=== PATIENT | male | born 1935 | race Caucasian/White ===

== ENCOUNTER 2018-11-17 06:21 | Inpatient (IN) ==
[2018-11-13 15:35] LABS: Basophils % 0.3 % (0.0-0.8); Eosinophils # 0.1 10*3/uL (0.0-0.87); Eosinophils % 1.3 % (0.00-10.9); Hematocrit 46.2 VOL% (42.0-52.0); Hemoglobin 14.4 GM/DL (14.0-18.0); Immature Granulocytes % 0.3 %; Immature Granulocytes Absolute 0.03 #; Lymphocytes # 1.6 10*3/uL (1.4-4.0); Lymphocytes % 17.5 % (21.2-54.2); Mean Corpuscular HGB Conc 31.2 GM/DL (32-36); Mean Corpuscular Volume 86.4 FL (87-102); Mean Platelet Volume 9.4 FL (9.6-12.0); Monocytes % 5.3 % (1.7-12.7); Neutrophils % 75.3 % (38.7-73.9); Platelet Count 223 T/CUMM (130-400); Red Blood Count 5.35 MC/CUMM (3.8-5.5); Red Cell Distribution Width 15.3 % (9.3-17.3); White Blood Count 9.4 T/CUMM (4-12)
[2018-11-13 15:54] LABS: Albumin 3.5 G/DL (3.4-5.0); Bilirubin,Total 0.4 MG/DL (0.2-1.0); Calcium 8.5 MG/DL (8.5-10.1); Osmolality,Calculated 291.1 MOS/KG (273-304); Total Protein 6.8 G/DL (6.4-8.3)
[2018-11-17] MEDS ORDERED: VANCOMYCIN INJ 500 MG in SODIUM CHLORIDE 0.9% 100 ML IV ONE (06:30)
[2018-11-17] MEDS ORDERED: VANCOMYCIN 500 MG VIAL ONE (07:31)
[2018-11-17] MEDS ORDERED: LIDOCAINE 1% 20 ML VIAL ONE (08:02)
[2018-11-17] MEDS ORDERED: HEPARIN 5,000 UNIT/1 ML VIAL ONE (08:02)
[2018-11-17] MEDS ORDERED: LACTATED RINGERS 1,000 ML IV SCH (10:00)
[2018-11-17] MEDS ORDERED: ONDANSETRON 4 MG/2 ML VIAL IV PRN (11:09)
[2018-11-17] MEDS ORDERED: HYDROmorphone 2 MG/1 ML VIAL IV PRN ×2 (11:09)
[2018-11-17] MEDS ORDERED: NALOXONE 0.4 MG/ML VIAL IV PRN (11:09)
[2018-11-17] MEDS ORDERED: oxyCODONE/ACETAMINOPHEN 5-325 MG TABLET PO PRN ×2 (11:09)
[2018-11-17] MEDS ORDERED: PROMETHAZINE 25 MG/1 ML VIAL IM PRN (11:09)
[2018-11-17] MEDS ORDERED: DEXTROSE 50% 25 GM/50 ML VIAL IV PRN (11:09)
[2018-11-17] MEDS ORDERED: GLUCAGON 1 MG VIAL IM PRN (11:09)
[2018-11-17] MEDS ORDERED: NITROGLYCERIN SL 0.4 MG TABLET SL PRN (11:12)
[2018-11-17] MEDS ORDERED: NITROPRUSSIDE 100 MG in DEXTROSE 5% 250 ML IV SCH (11:30)
[2018-11-17] MEDS ORDERED: PROPOFOL 200 MG/20 ML VIAL IV ONE (11:36)
[2018-11-17] MEDS ORDERED: HEPARIN 10,000 UNIT/10 ML VIAL ONE (11:36)
[2018-11-17] MEDS ORDERED: SEVOFLURANE 1 UNIT/15 MINUTE INH ONE (11:36)
[2018-11-17] MEDS ORDERED: ETOMIDATE 40 MG/20 ML VIAL IV ONE (11:37)
[2018-11-17] MEDS ORDERED: GLYCOPYRROLATE 0.4 MG/2 ML VIAL ONE (11:37)
[2018-11-17] MEDS ORDERED: MIDAZOLAM 2 MG/2 ML VIAL ONE (11:37)
[2018-11-17] MEDS ORDERED: fentaNYL 100 MCG/2 ML VIAL ONE (11:37)
[2018-11-17] MEDS ORDERED: ePHEDrine 50 MG/ML AMP ONE (11:37)
[2018-11-17] MEDS ORDERED: ONDANSETRON 4 MG/2 ML VIAL ONE (11:37)
[2018-11-17] MEDS ORDERED: PHENYLEPHRINE 10 MG/1 ML VIAL IV ONE (11:37)
[2018-11-17] MEDS ORDERED: NITROGLYCERIN DRIP 50 MG/250 ML BOTTLE IV ONE (11:38)
[2018-11-17] MEDS ORDERED: PHENYLEPHRINE 1 MG/10 ML SYRINGE IV ONE (11:38)
[2018-11-17] MEDS ORDERED: ROCURONIUM 100 MG/10 ML VIAL IV ONE (11:38)
[2018-11-17] MEDS ORDERED: SODIUM CHLORIDE 0.9% 500 ML IV ONE (11:39)
[2018-11-17] MEDS ORDERED: LACTATED RINGERS 2,000 ML IV ONE (11:39)
[2018-11-17] MEDS ORDERED: SODIUM CHLORIDE 0.9% 200 ML IV ONE (11:39)
[2018-11-17] MEDS ORDERED: NEOSTIGMINE 10 MG/10 ML VIAL ONE (11:39)
[2018-11-17] MEDS: INSULIN REGULAR 100 UNIT/ML SUBCUT SCH ×2 (14:44→21:34)
[2018-11-17] MEDS: LACTATED RINGERS 1,000 ML IV SCH (14:45)
[2018-11-17] MEDS: PHENYLEPHRINE DRIP 40 MG/250 ML PREMIX IV SCH ×2 (14:47→15:00)
[2018-11-17] MEDS: MAGNESIUM OXIDE 400 MG TABLET PO SCH ×2 (16:43→22:12)
[2018-11-17] MEDS: FAMOTIDINE 20 MG TABLET PO SCH (22:12)
[2018-11-17 22:25] LABS: Apearance,Urine CLEAR (Clear); Bacteria,Urine Occasional /HPF (Few); Bilirubin,Urine Negative (Negative); Blood, Urine Small mg/dL (Negative); Glucose,Urine (UA) >=500 mg/dL (Negative); Ketones,Urine Negative (Negative); Mucus,Urine Occasional /LPF (Occasional); Nitrite,Urine Negative (Negative); Protein,Urine Negative; RBC,Urine 9 /HPF (0-4); Urine Color Yellow (Yellow); Urine Specific Gravity 1.024 (1.001-1.035); Urine Urobilinogen < 2.0 EU/DL (0.2-1.0); WBC,Urine 1 /HPF (0-6)
[2018-11-18] MEDS: INSULIN REGULAR 100 UNIT/ML SUBCUT SCH ×3 (00:18→11:53)
[2018-11-18] MEDS: LACTATED RINGERS 1,000 ML IV SCH (01:06)
[2018-11-18] MEDS ORDERED: LEVOTHYROXINE 25 MCG TABLET PO SCH (06:30)
[2018-11-18] MEDS ORDERED: AMIODARONE 200 MG TABLET PO SCH ×2 (09:00)
[2018-11-18] MEDS ORDERED: CLOPIDOGREL 75 MG TABLET PO SCH ×2 (09:00)
[2018-11-18] MEDS ORDERED: TAMSULOSIN 0.4 MG CAPSULE PO SCH (09:00)
[2018-11-18] MEDS ORDERED: sitaGLIPtin 25 MG TABLET PO SCH (09:00)
[2018-11-18] MEDS ORDERED: ASPIRIN EC 81 MG TABLET PO SCH ×2 (09:00)
[2018-11-18] MEDS: MAGNESIUM OXIDE 400 MG TABLET PO SCH (09:18)
[2018-11-18] MEDS: FAMOTIDINE 20 MG TABLET PO SCH (09:18)
[2018-11-18] MEDS ORDERED: EMPAGLIFLOZIN METFORMIN PO SCH (09:29)
[2018-11-18] MEDS ORDERED: INSULIN GLARGINE 100 UNIT/ML SUBCUT SCH (10:00)
[2018-11-18] MEDS ORDERED: SIMETHICONE CHEW 125 MG TABLET PO PRN (10:14)
[2018-11-18 15:46] VITALS: BP 129/77
== END 2018-11-18 17:10 | disposition home or self-care (01) | DRG 39 ==
LOC: N.SDSINP 06:21 → N.CC 12:39 → N.4E 11-18 10:36
PROVIDERS: ADMIT Surgery; ATTEND Surgery

== ENCOUNTER 2020-01-25 14:19 | Inpatient (IN) ==
[2020-01-25 15:01] LABS: Basophils % 0.4 % (0.0-0.8); Eosinophils # 0.1 10*3/uL (0.0-0.87); Hematocrit 50.1 VOL% (42.0-52.0); Hemoglobin 16.1 GM/DL (14.0-18.0); Immature Granulocytes % 0.4 %; Immature Granulocytes Absolute 0.03 #; Lymphocytes # 1.9 10*3/uL (1.4-4.0); Lymphocytes % 23.5 % (21.2-54.2); Mean Corpuscular HGB Conc 32.1 GM/DL (32-36); Mean Corpuscular Volume 85.1 FL (87-102); Mean Platelet Volume 9.8 FL (9.6-12.0); Monocytes % 6.7 % (1.7-12.7); Platelet Count 192 T/CUMM (130-400); Red Blood Count 5.89 MC/CUMM (3.8-5.5); Red Cell Distribution Width 14.6 % (9.3-17.3); White Blood Count 8.2 T/CUMM (4-12)
[2020-01-25 15:19] LABS: Alanine Aminotransferase 28 U/L (16-61); Albumin 3.3 G/DL (3.4-5.0); Alkaline Phosphatase 71 U/L (45-117); Aspartate Amino Transferase 17 U/L (0-37); Bilirubin,Total < 0.39 MG/DL (0.2-1.0); Blood Urea Nitrogen 27 MG/DL (7-18); Calcium 9.1 MG/DL (8.5-10.1); Estimated Glom Filtration Rate 47 ML/MIN; Glucose 241 MG/DL (74-106); Osmolality,Calculated 287.7 MOS/KG (273-304); Total Protein 6.7 G/DL (6.4-8.3)
[2020-01-25 15:29] LABS: PT Patient Result 10.4 SECS (9.8-11.9)
[2020-01-25] MEDS ORDERED: HEPARIN 1,000 UNIT/1 ML VIAL IV STA (15:33)
[2020-01-25] MEDS ORDERED: ONDANSETRON 4 MG/2 ML VIAL IV PRN (15:36)
[2020-01-25] MEDS ORDERED: ACETAMINOPHEN 325 MG TABLET PO PRN (15:36)
[2020-01-25] MEDS ORDERED: HEPARIN DRIP 25,000 UNITS/500 ML PREMIX IV SCH (16:00)
[2020-01-25] MEDS ORDERED: LACTATED RINGERS 1,000 ML IV SCH (16:00)
[2020-01-25] MEDS ORDERED: NITROGLYCERIN SL 0.4 MG TABLET SL PRN (16:32)
[2020-01-25] MEDS ORDERED: GLUCAGON 1 MG VIAL IM PRN (16:38)
[2020-01-25] MEDS ORDERED: DEXTROSE 50% 25 GM/50 ML VIAL IV PRN (16:38)
[2020-01-25 16:55] LABS: Apearance,Urine CLEAR (Clear); Bilirubin,Urine Negative (Negative); Blood, Urine Negative (Negative); Glucose,Urine (UA) >=500 mg/dL (Negative); Hyaline Casts,Urine 3 /LPF (0-3); Ketones,Urine Negative (Negative); Mucus,Urine Occasional /LPF (Occasional); Nitrite,Urine Negative (Negative); Protein,Urine Negative; RBC,Urine 1 /HPF (0-4); Urine Color Yellow (Yellow); Urine Specific Gravity 1.031 (1.001-1.035); Urine Urobilinogen < 2.0 EU/DL (0.2-1.0); WBC,Urine 1 /HPF (0-6)
[2020-01-25 17:05] LABS: Barbiturates Screen,Urine Negative (Negative); Benzodiazepines Screen,Urine Negative (Negative); Cannabinoid Screen,Urine Negative (Negative); Opiate Screen,Urine Negative (Negative); Phencyclidine Screen,Urine Negative (Negative)
[2020-01-25] MEDS: MIDODRINE 2.5 MG TABLET PO SCH (20:38)
[2020-01-25] MEDS: FAMOTIDINE 20 MG TABLET PO SCH (20:38)
[2020-01-25] MEDS: GABAPENTIN 100 MG CAPSULE PO SCH (20:39)
[2020-01-25] MEDS: AMIODARONE 200 MG TABLET PO SCH (20:39)
[2020-01-26 00:53] LABS: Basophils % 0.4 % (0.0-0.8); Eosinophils # 0.2 10*3/uL (0.0-0.87); Eosinophils % 2.9 % (0.00-10.9); Hematocrit 49.1 VOL% (42.0-52.0); Hemoglobin 15.5 GM/DL (14.0-18.0); Immature Granulocytes % 0.4 %; Immature Granulocytes Absolute 0.03 #; Lymphocytes # 2.7 10*3/uL (1.4-4.0); Mean Corpuscular HGB Conc 31.6 GM/DL (32-36); Mean Corpuscular Volume 86.6 FL (87-102); Mean Platelet Volume 9.8 FL (9.6-12.0); Monocytes % 7.2 % (1.7-12.7); Neutrophils % 50.1 % (38.7-73.9); Platelet Count 156 T/CUMM (130-400); Red Blood Count 5.67 MC/CUMM (3.8-5.5)
[2020-01-26 01:05] LABS: PT Patient Result 10.8 SECS (9.8-11.9); Partial Thromboplastin Time 42.3 SECS (23.9-33.8)
[2020-01-26 01:15] LABS: Calcium 8.6 MG/DL (8.5-10.1); Osmolality,Calculated 287.4 MOS/KG (273-304)
[2020-01-26] MEDS: LEVOTHYROXINE 25 MCG TABLET PO SCH (06:21)
[2020-01-26] MEDS ORDERED: VANCOMYCIN INJ 1,000 MG in SODIUM CHLORIDE 0.9% 250 ML IV ONE (09:00)
[2020-01-26] MEDS ORDERED: DEXMEDETOMIDINE 200 MCG/2 ML VIAL ONE (11:35)
[2020-01-26] MEDS ORDERED: BUPIVACAINE MPF 0.5% /EPI 30 ML VIAL ONE (11:35)
[2020-01-26] MEDS ORDERED: HEPARIN 5,000 UNIT/1 ML VIAL ONE (12:59)
[2020-01-26] MEDS ORDERED: LIDOCAINE 1% 20 ML VIAL ONE (12:59)
[2020-01-26] MEDS ORDERED: GLUCAGON 1 MG VIAL IM PRN (14:16)
[2020-01-26] MEDS ORDERED: NALOXONE 0.4 MG/ML VIAL IV PRN (14:16)
[2020-01-26] MEDS ORDERED: PROMETHAZINE 25 MG/1 ML VIAL IM PRN (14:16)
[2020-01-26] MEDS ORDERED: oxyCODONE/ACETAMINOPHEN 5-325 MG TABLET PO PRN ×2 (14:16)
[2020-01-26] MEDS ORDERED: DEXTROSE 50% 25 GM/50 ML VIAL IV PRN (14:16)
[2020-01-26] MEDS ORDERED: ONDANSETRON 4 MG/2 ML VIAL IV PRN (14:16)
[2020-01-26] MEDS ORDERED: HYDROmorphone 2 MG/1 ML VIAL IV PRN (14:16)
[2020-01-26] MEDS ORDERED: PHENYLEPHRINE DRIP 40 MG/250 ML PREMIX IV SCH (14:30)
[2020-01-26] MEDS ORDERED: DESFLURANE 1 UNIT/15 MINUTE INH ONE (14:52)
[2020-01-26] MEDS ORDERED: ONDANSETRON 4 MG/2 ML VIAL ONE (14:52)
[2020-01-26] MEDS ORDERED: fentaNYL 100 MCG/2 ML VIAL ONE (14:52)
[2020-01-26] MEDS ORDERED: HEPARIN 10,000 UNIT/10 ML VIAL ONE (14:52)
[2020-01-26] MEDS ORDERED: PHENYLEPHRINE DRIP 20 MG/250 ML PREMIX IV ONE (14:52)
[2020-01-26] MEDS ORDERED: LIDOCAINE 2% 5 ML VIAL ONE (14:52)
[2020-01-26] MEDS ORDERED: SODIUM CHLORIDE 0.9% 1,000 ML IV ONE (14:53)
[2020-01-26] MEDS ORDERED: ROCURONIUM 100 MG/10 ML VIAL IV ONE (14:53)
[2020-01-26] MEDS ORDERED: PROTAMINE SULFATE 50 MG/5 ML VIAL IV ONE (14:53)
[2020-01-26] MEDS ORDERED: LACTATED RINGERS 1,000 ML IV ONE (14:53)
[2020-01-26] MEDS ORDERED: NITROGLYCERIN DRIP 50 MG/250 ML BOTTLE IV ONE (14:53)
[2020-01-26] MEDS ORDERED: NEOSTIGMINE 10 MG/10 ML VIAL ONE (14:53)
[2020-01-26] MEDS ORDERED: ETOMIDATE 40 MG/20 ML VIAL IV ONE (14:53)
[2020-01-26] MEDS ORDERED: GLYCOPYRROLATE 0.4 MG/2 ML VIAL ONE (14:53)
[2020-01-26] MEDS: LACTATED RINGERS 1,000 ML IV SCH (15:40)
[2020-01-26] MEDS: TAMSULOSIN 0.4 MG CAPSULE PO SCH (17:08)
[2020-01-26] MEDS: AMIODARONE 200 MG TABLET PO SCH ×2 (17:08→20:16)
[2020-01-26] MEDS: ASPIRIN EC 81 MG TABLET PO SCH (17:08)
[2020-01-26] MEDS: INSULIN GLARGINE 100 UNIT/ML SUBCUT SCH (17:08)
[2020-01-26] MEDS: MIDODRINE 2.5 MG TABLET PO SCH ×2 (17:08→20:16)
[2020-01-26] MEDS: GABAPENTIN 100 MG CAPSULE PO SCH ×2 (17:08→20:16)
[2020-01-26] MEDS: EMPAGLIFLOZIN METFORMIN PO SCH (17:08)
[2020-01-26] MEDS: VITAMIN E 400 UNIT CAPSULE PO SCH (17:09)
[2020-01-26] MEDS: PANTOPRAZOLE 40 MG TABLET PO SCH (17:09)
[2020-01-26] MEDS: NITROPRUSSIDE 100 MG in DEXTROSE 5% 250 ML IV SCH (17:09)
[2020-01-26] MEDS: INSULIN REGULAR 100 UNIT/ML SUBCUT SCH ×2 (18:47→23:39)
[2020-01-26] MEDS: HYDROmorphone 2 MG/1 ML VIAL IV PRN (20:13)
[2020-01-26] MEDS: FAMOTIDINE 20 MG TABLET PO SCH (20:16)
[2020-01-27] MEDS: HYDROmorphone 2 MG/1 ML VIAL IV PRN ×2 (01:10→04:56)
[2020-01-27] MEDS: LACTATED RINGERS 1,000 ML IV SCH (01:20)
[2020-01-27] MEDS ORDERED: NITROPRUSSIDE 50 MG/2 ML VIAL ONE (02:38)
[2020-01-27] MEDS: NITROPRUSSIDE 100 MG in DEXTROSE 5% 250 ML IV SCH (02:47)
[2020-01-27] MEDS: LEVOTHYROXINE 25 MCG TABLET PO SCH (06:21)
[2020-01-27] MEDS: INSULIN REGULAR 100 UNIT/ML SUBCUT SCH ×2 (06:21→12:02)
[2020-01-27] MEDS: INSULIN GLARGINE 100 UNIT/ML SUBCUT SCH (08:21)
[2020-01-27] MEDS: TAMSULOSIN 0.4 MG CAPSULE PO SCH (08:22)
[2020-01-27] MEDS: PANTOPRAZOLE 40 MG TABLET PO SCH (08:22)
[2020-01-27] MEDS: VITAMIN E 400 UNIT CAPSULE PO SCH (08:22)
[2020-01-27] MEDS: GABAPENTIN 100 MG CAPSULE PO SCH (08:22)
[2020-01-27] MEDS: ASPIRIN EC 81 MG TABLET PO SCH (08:22)
[2020-01-27] MEDS: AMIODARONE 200 MG TABLET PO SCH (08:22)
[2020-01-27] MEDS: EMPAGLIFLOZIN METFORMIN PO SCH (08:24)
[2020-01-27] MEDS: MIDODRINE 2.5 MG TABLET PO SCH (08:38)
[2020-01-27] MEDS ORDERED: APIXABAN 5 MG TABLET PO SCH (09:00)
[2020-01-27] MEDS ORDERED: sitaGLIPtin 100 MG TABLET PO SCH (09:00)
[2020-01-27] MEDS ORDERED: carvediloL 3.125 MG TABLET PO SCH (11:00)
[2020-01-27 16:19] VITALS: BP 137/74
== END 2020-01-27 17:03 | disposition home or self-care (01) | DRG 38 ==
LOC: EDBD → EDUNIT# → N.ED 14:19 → N.EDINP 15:36 → N.TELEN 17:33 → N.ICU 01-26 12:30 → N.4E 01-27 15:34
PROVIDERS: ADMIT Surgery; ATTEND Surgery

== ENCOUNTER 2021-10-26 22:54 | Inpatient (IN) ==
[2021-10-26] MEDS ORDERED: fentaNYL 100 MCG/2 ML VIAL IV STA (23:22)
[2021-10-26 23:50] LABS: INR 0.9; PT Patient Result 10.5 SECS (10.5-12.0); Partial Thromboplastin Time 28.5 SECS (23.8-32.1)
[2021-10-27 00:04] LABS: Albumin 3.2 G/DL (3.4-5.0); Bilirubin,Total 0.6 MG/DL (0.20-1.00); Calcium 9.4 MG/DL (8.5-10.1); Osmolality,Calculated 296.5 MOS/KG (273-304); Potassium 4.8 MMOL/L (3.5-5.1); Total Protein 6.9 G/DL (6.4-8.2)
[2021-10-27 00:14] LABS: Basophils % 0.2 % (0.0-0.8); Eosinophils # 0.1 10*3/uL (0.0-0.87); Eosinophils % 0.8 % (0.00-10.9); Hematocrit 47.6 VOL% (42.0-52.0); Hemoglobin 15.1 GM/DL (14.0-18.0); Immature Granulocytes % 1.3 %; Immature Granulocytes Absolute 0.08 #; Lymphocytes # 1.5 10*3/uL (1.4-4.0); Lymphocytes % 23.3 % (21.2-54.2); Mean Corpuscular HGB Conc 31.7 GM/DL (32-36); Mean Corpuscular Volume 85.5 FL (87-102); Mean Platelet Volume 9.9 FL (9.6-12.0); Monocytes # 0.5 10*3/uL (0.11-0.8); Monocytes % 7.9 % (1.7-12.7); Neutrophils % 66.5 % (38.7-73.9); Platelet Count 195 T/CUMM (130-400); Red Blood Count 5.57 MC/CUMM (3.8-5.5); Red Cell Distribution Width 15.3 % (9.3-17.3); White Blood Count 6.4 T/CUMM (4-12)
[2021-10-27] MEDS ORDERED: hydrALAZINE 20 MG/1 ML VIAL IV STA (00:33)
[2021-10-27] MEDS ORDERED: GLUCAGON 1 MG VIAL IM PRN (00:34)
[2021-10-27] MEDS ORDERED: fentaNYL 100 MCG/2 ML VIAL IV PRN (00:45)
[2021-10-27] MEDS ORDERED: DEXTROSE 10% 250 ML BAG IV PRN (00:47)
[2021-10-27] MEDS ORDERED: fentaNYL 100 MCG/2 ML VIAL IV STA (01:44)
[2021-10-27] MEDS: HYDROmorphone 1 MG/1 ML SYRINGE IV PRN ×2 (03:49→08:15)
[2021-10-27 05:35] LABS: Basophils % 0.1 % (0.0-0.8); Eosinophils % 0.1 % (0.00-10.9); Hematocrit 47.8 VOL% (42.0-52.0); Hemoglobin 15.1 GM/DL (14.0-18.0); Immature Granulocytes % 0.5 %; Immature Granulocytes Absolute 0.05 #; Lymphocytes # 0.9 10*3/uL (1.4-4.0); Lymphocytes % 8.2 % (21.2-54.2); Mean Corpuscular HGB Conc 31.6 GM/DL (32-36); Mean Corpuscular Volume 84.6 FL (87-102); Mean Platelet Volume 9.7 FL (9.6-12.0); Monocytes # 0.7 10*3/uL (0.11-0.8); Monocytes % 6.2 % (1.7-12.7); Neutrophils % 84.9 % (38.7-73.9); Platelet Count 209 T/CUMM (130-400); Red Blood Count 5.65 MC/CUMM (3.8-5.5); Red Cell Distribution Width 15.5 % (9.3-17.3); White Blood Count 10.8 T/CUMM (4-12)
[2021-10-27 06:05] LABS: Albumin 3.2 G/DL (3.4-5.0); Bilirubin,Total 0.7 MG/DL (0.20-1.00); Calcium 8.9 MG/DL (8.5-10.1); Osmolality,Calculated 296.3 MOS/KG (273-304); Potassium 4.6 MMOL/L (3.5-5.1)
[2021-10-27] MEDS ORDERED: ceFAZolin 2,000 MG/50 ML DUPLEX IV ONE (07:08)
[2021-10-27] MEDS ORDERED: VANCOMYCIN INJ 1,000 MG in SODIUM CHLORIDE 0.9% 250 ML IV ONE (07:08)
[2021-10-27] MEDS ORDERED: ACETAMINOPHEN 500 MG TABLET PO ONE (08:09)
[2021-10-27] MEDS ORDERED: GABAPENTIN 400 MG CAPSULE PO ONE (08:09)
[2021-10-27] MEDS: INSULIN REGULAR 100 UNIT/ML SUBCUT SCH ×4 (09:15→21:22)
[2021-10-27] MEDS: PANTOPRAZOLE 40 MG TABLET PO SCH (09:23)
[2021-10-27] MEDS ORDERED: BACITRACIN OINT 0.9 GM PACK TOP ONE (09:34)
[2021-10-27] MEDS ORDERED: KETAMINE 500 MG/10 ML VIAL ONE (10:41)
[2021-10-27] MEDS ORDERED: DEXMEDETOMIDINE 200 MCG/2 ML VIAL ONE (10:41)
[2021-10-27] MEDS ORDERED: BUPIVACAINE 0.5% 50 ML VIAL ONE (10:42)
[2021-10-27] MEDS ORDERED: ALBUTEROL/IPRATROPIUM 3 ML NEB RESP TX ONE (10:54)
[2021-10-27] MEDS ORDERED: NITROGLYCERIN 2% OINT 1 INCH/GM PACK TOP ONE (11:10)
[2021-10-27] MEDS ORDERED: METOCLOPRAMIDE 10 MG/2 ML VIAL ONE (11:10)
[2021-10-27] MEDS ORDERED: FAMOTIDINE 20 MG/2 ML VIAL IV ONE (11:11)
[2021-10-27] MEDS ORDERED: propofoL 200 MG/20 ML VIAL IV ONE (11:22)
[2021-10-27] MEDS ORDERED: LACTATED RINGERS 1,000 ML IV ONE (12:19)
[2021-10-27] MEDS ORDERED: TRANEXAMIC ACID 1,000 MG/10 ML VIAL ONE (12:21)
[2021-10-27] MEDS ORDERED: GLYCOPYRROLATE 0.4 MG/2 ML VIAL ONE (12:40)
[2021-10-27] MEDS ORDERED: NEOSTIGMINE 10 MG/10 ML VIAL ONE (12:40)
[2021-10-27] MEDS ORDERED: SEVOFLURANE 1 UNIT/15 MINUTE INH ONE (12:43)
[2021-10-27] MEDS ORDERED: MAGNESIUM HYDROXIDE SUSP 30 ML UDCUP PO PRN (13:05)
[2021-10-27] MEDS ORDERED: MORPHINE 2 MG/1 ML SYRINGE IV PRN ×2 (13:06)
[2021-10-27] MEDS ORDERED: NITROGLYCERIN SL 0.4 MG TABLET SL PRN (13:08)
[2021-10-27 13:20] LABS: Bilirubin,Urine Negative (Negative); Blood, Urine Negative (Negative); Glucose,Urine (UA) 500 mg/dL (Negative); Ketones,Urine Negative (Negative); Nitrite,Urine Negative (Negative); Protein,Urine Negative (Negative); Urine Appearance Clear (Clear); Urine Color Yellow (Yellow); Urine Urobilinogen 0.2 eU/dL (<2.0); Urine pH 5.5 (4.5-8.0)
[2021-10-27 13:24] LABS: RBC,Urine 1 /HPF (0-4)
[2021-10-27] MEDS: LACTATED RINGERS 1,000 ML IV SCH ×3 (14:00→23:00)
[2021-10-27] MEDS: ceFAZolin 2,000 MG/50 ML DUPLEX IV SCH (18:40)
[2021-10-27] MEDS ORDERED: AMIODARONE 200 MG TABLET PO ONE (20:41)
[2021-10-27] MEDS ORDERED: DOXEPIN 10 MG PO SCH (21:00)
[2021-10-27] MEDS: TAMSULOSIN 0.4 MG CAPSULE PO SCH (21:18)
[2021-10-27] MEDS: MAGNESIUM OXIDE 400 MG TABLET PO SCH (21:19)
[2021-10-27] MEDS: GABAPENTIN 100 MG CAPSULE PO SCH (21:19)
[2021-10-27] MEDS: DOCUSATE SODIUM 100 MG CAPSULE PO SCH (21:19)
[2021-10-27] MEDS: CYCLOSPORINE 25 MG PO SCH (21:20)
[2021-10-27] MEDS: INSULIN GLARGINE 100 UNIT/ML SUBCUT SCH (21:22)
[2021-10-28] MEDS: ceFAZolin 2,000 MG/50 ML DUPLEX IV SCH (02:02)
[2021-10-28] MEDS ORDERED: LACTATED RINGERS 500 ML IV ONE (03:25)
[2021-10-28] MEDS: ONDANSETRON 4 MG/2 ML VIAL IV PRN ×2 (04:26→11:21)
[2021-10-28 04:35] LABS: Calcium 8.4 MG/DL (8.5-10.1); Osmolality,Calculated 293.1 MOS/KG (273-304); Potassium 4.6 MMOL/L (3.5-5.1)
[2021-10-28 04:50] LABS: Basophils % 0.3 % (0.0-0.8); Eosinophils # 0.1 10*3/uL (0.0-0.87); Eosinophils % 0.7 % (0.00-10.9); Immature Granulocytes % 0.6 %; Immature Granulocytes Absolute 0.06 #; Lymphocytes # 0.8 10*3/uL (1.4-4.0); Lymphocytes % 8.7 % (21.2-54.2); Mean Corpuscular HGB Conc 30.2 GM/DL (32-36); Mean Corpuscular Volume 87.9 FL (87-102); Mean Platelet Volume 10.4 FL (9.6-12.0); Monocytes # 0.8 10*3/uL (0.11-0.8); Neutrophils % 81.7 % (38.7-73.9); Platelet Count 146 T/CUMM (130-400); Red Blood Count 5.04 MC/CUMM (3.8-5.5); Red Cell Distribution Width 15.6 % (9.3-17.3); White Blood Count 9.3 T/CUMM (4-12)
[2021-10-28 04:51] LABS: Hematocrit 44.3 VOL% (42.0-52.0); Hemoglobin 13.4 GM/DL (14.0-18.0)
[2021-10-28] MEDS: LEVOTHYROXINE 50 MCG TABLET PO SCH (06:16)
[2021-10-28] MEDS: LACTATED RINGERS 1,000 ML IV SCH ×2 (08:00→16:13)
[2021-10-28] MEDS: INSULIN GLARGINE 100 UNIT/ML SUBCUT SCH ×2 (08:36→21:36)
[2021-10-28] MEDS: FEXOFENADINE 180 MG TABLET PO SCH (08:37)
[2021-10-28] MEDS: ASPIRIN EC 81 MG TABLET PO SCH (08:37)
[2021-10-28] MEDS: CHOLECALCIFEROL 1,000 UNIT TABLET PO SCH (08:37)
[2021-10-28] MEDS: GABAPENTIN 100 MG CAPSULE PO SCH ×2 (08:37→21:37)
[2021-10-28] MEDS: CYCLOSPORINE 25 MG PO SCH ×3 (08:39→21:37)
[2021-10-28] MEDS: DOCUSATE SODIUM 100 MG CAPSULE PO SCH ×2 (08:40→21:37)
[2021-10-28] MEDS: INSULIN REGULAR 100 UNIT/ML SUBCUT SCH ×5 (08:40→21:36)
[2021-10-28] MEDS: MAGNESIUM OXIDE 400 MG TABLET PO SCH ×2 (08:40→21:37)
[2021-10-28] MEDS: TAMSULOSIN 0.4 MG CAPSULE PO SCH ×2 (08:41→21:37)
[2021-10-28] MEDS: PANTOPRAZOLE 40 MG TABLET PO SCH (08:41)
[2021-10-28] MEDS: CYANOCOBALAMIN 500 MCG TABLET PO SCH (08:42)
[2021-10-28] MEDS ORDERED: sitaGLIPtin 100 MG TABLET PO SCH (09:00)
[2021-10-28] MEDS ORDERED: DAPAGLIFLOZIN 10 MG TABLET PO SCH (09:00)
[2021-10-28] MEDS: AMIODARONE 200 MG TABLET PO SCH (09:21)
[2021-10-28] MEDS ORDERED: ENOXAPARIN 40 MG/0.4 ML SYRINGE SUBCUT SCH (12:00)
[2021-10-29] MEDS: hydrALAZINE 20 MG/1 ML VIAL IV PRN ×2 (04:34→10:23)
[2021-10-29] MEDS: LACTATED RINGERS 1,000 ML IV SCH (04:38)
[2021-10-29 05:18] LABS: Basophils % 0.1 % (0.0-0.8); Eosinophils % 0.2 % (0.00-10.9); Hematocrit 44.4 VOL% (42.0-52.0); Hemoglobin 13.5 GM/DL (14.0-18.0); Immature Granulocytes % 0.5 %; Immature Granulocytes Absolute 0.06 #; Lymphocytes % 8.5 % (21.2-54.2); Mean Corpuscular HGB Conc 30.4 GM/DL (32-36); Mean Corpuscular Volume 87.4 FL (87-102); Mean Platelet Volume 10.1 FL (9.6-12.0); Monocytes # 1.1 10*3/uL (0.11-0.8); Monocytes % 9.1 % (1.7-12.7); Neutrophils % 81.6 % (38.7-73.9); Platelet Count 178 T/CUMM (130-400); Red Blood Count 5.08 MC/CUMM (3.8-5.5); Red Cell Distribution Width 15.4 % (9.3-17.3); White Blood Count 11.8 T/CUMM (4-12)
[2021-10-29 05:36] LABS: Risk Ratio 2.82
[2021-10-29] MEDS: LEVOTHYROXINE 50 MCG TABLET PO SCH (05:43)
[2021-10-29] MEDS: MAGNESIUM OXIDE 400 MG TABLET PO SCH ×2 (08:30→20:51)
[2021-10-29] MEDS: CHOLECALCIFEROL 1,000 UNIT TABLET PO SCH (08:30)
[2021-10-29] MEDS: GABAPENTIN 100 MG CAPSULE PO SCH ×2 (08:30→20:51)
[2021-10-29] MEDS: CYANOCOBALAMIN 500 MCG TABLET PO SCH (08:30)
[2021-10-29] MEDS: FEXOFENADINE 180 MG TABLET PO SCH (08:31)
[2021-10-29] MEDS: INSULIN GLARGINE 100 UNIT/ML SUBCUT SCH ×2 (08:31→20:53)
[2021-10-29] MEDS: ASPIRIN EC 81 MG TABLET PO SCH (08:31)
[2021-10-29] MEDS: DOCUSATE SODIUM 100 MG CAPSULE PO SCH ×2 (08:31→20:51)
[2021-10-29] MEDS: PANTOPRAZOLE 40 MG TABLET PO SCH (08:31)
[2021-10-29] MEDS: TAMSULOSIN 0.4 MG CAPSULE PO SCH ×2 (08:31→20:51)
[2021-10-29] MEDS: AMIODARONE 200 MG TABLET PO SCH (08:32)
[2021-10-29] MEDS: INSULIN REGULAR 100 UNIT/ML SUBCUT SCH ×5 (08:32→20:53)
[2021-10-29] MEDS: amLODIPine 5 MG TABLET PO SCH (08:37)
[2021-10-29] MEDS: CYCLOSPORINE 25 MG PO SCH (08:38)
[2021-10-29 09:22] LABS: Calcium 8.6 MG/DL (8.5-10.1); Osmolality,Calculated 296.1 MOS/KG (273-304); Potassium 4.4 MMOL/L (3.5-5.1)
[2021-10-29] MEDS ORDERED: GLUCAGON 1 MG VIAL IM PRN (10:36)
[2021-10-29] MEDS ORDERED: DEXTROSE 10% 250 ML BAG IV PRN (10:46)
[2021-10-29] MEDS: ONDANSETRON 4 MG/2 ML VIAL IV PRN (11:54)
[2021-10-29] MEDS ORDERED: ALBUTEROL/IPRATROPIUM 3 ML NEB RESP TX ONE (13:20)
[2021-10-29] MEDS ORDERED: hydrALAZINE 20 MG/1 ML VIAL IV PRN (13:31)
[2021-10-29] MEDS ORDERED: MAGNESIUM SULF RIDER 2 GM/50 ML PREMIX IV ONE (13:32)
[2021-10-29] MEDS ORDERED: METOPROLOL TARTRATE 5 MG/5 ML VIAL IV ONE ×2 (14:01→14:13)
[2021-10-29] MEDS ORDERED: AMIODARONE 200 MG TABLET PO ONE ×2 (14:30→15:13)
[2021-10-29] MEDS ORDERED: ALBUTEROL/IPRATROPIUM 3 ML NEB RESP TX SCH (15:00)
[2021-10-29] MEDS: LINACLOTIDE 145 MCG CAPSULE PO SCH (15:16)
[2021-10-29] MEDS ORDERED: MAGNESIUM CITRATE 300 ML BOTTLE PO ONE (16:28)
[2021-10-29] MEDS: METOPROLOL TARTRATE 50 MG TABLET PO SCH ×2 (16:31→20:51)
[2021-10-29] MEDS: ENOXAPARIN 40 MG/0.4 ML SYRINGE SUBCUT SCH (16:55)
[2021-10-29] MEDS: PIPERACILLIN/TAZOBACTAM 3,375 MG in SODIUM CHLORIDE 0.9% 100 ML IV SCH (17:15)
[2021-10-30] MEDS: PIPERACILLIN/TAZOBACTAM 3,375 MG in SODIUM CHLORIDE 0.9% 100 ML IV SCH ×3 (00:06→17:37)
[2021-10-30 02:21] LABS: Basophils % 0.1 % (0.0-0.8); Eosinophils # 0.1 10*3/uL (0.0-0.87); Eosinophils % 0.6 % (0.00-10.9); Hematocrit 42.1 VOL% (42.0-52.0); Immature Granulocytes % 0.5 %; Immature Granulocytes Absolute 0.06 #; Lymphocytes # 1.1 10*3/uL (1.4-4.0); Lymphocytes % 9.8 % (21.2-54.2); Mean Corpuscular HGB Conc 30.9 GM/DL (32-36); Mean Corpuscular Volume 87.9 FL (87-102); Mean Platelet Volume 9.6 FL (9.6-12.0); Monocytes # 0.8 10*3/uL (0.11-0.8); Platelet Count 180 T/CUMM (130-400); Red Blood Count 4.79 MC/CUMM (3.8-5.5); Red Cell Distribution Width 15.2 % (9.3-17.3); White Blood Count 11.1 T/CUMM (4-12)
[2021-10-30 02:45] LABS: Albumin 2.1 G/DL (3.4-5.0); Bilirubin,Total 0.7 MG/DL (0.20-1.00); Calcium 8.8 MG/DL (8.5-10.1); Potassium 4.7 MMOL/L (3.5-5.1); Total Protein 6.2 G/DL (6.4-8.2)
[2021-10-30] MEDS: LEVOTHYROXINE 50 MCG TABLET PO SCH (07:03)
[2021-10-30] MEDS: LINACLOTIDE 145 MCG CAPSULE PO SCH (10:24)
[2021-10-30] MEDS: FEXOFENADINE 180 MG TABLET PO SCH (10:25)
[2021-10-30] MEDS: ASPIRIN EC 81 MG TABLET PO SCH (10:26)
[2021-10-30] MEDS: DOCUSATE SODIUM 100 MG CAPSULE PO SCH ×2 (10:27→21:53)
[2021-10-30] MEDS: INSULIN REGULAR 100 UNIT/ML SUBCUT SCH ×4 (10:35→23:01)
[2021-10-30] MEDS: INSULIN GLARGINE 100 UNIT/ML SUBCUT SCH ×2 (10:36→23:01)
[2021-10-30] MEDS: CYANOCOBALAMIN 500 MCG TABLET PO SCH (10:37)
[2021-10-30] MEDS: CHOLECALCIFEROL 1,000 UNIT TABLET PO SCH (10:37)
[2021-10-30] MEDS: MAGNESIUM OXIDE 400 MG TABLET PO SCH ×2 (10:38→21:52)
[2021-10-30] MEDS: PANTOPRAZOLE 40 MG TABLET PO SCH (10:38)
[2021-10-30] MEDS: GABAPENTIN 100 MG CAPSULE PO SCH ×2 (10:40→21:53)
[2021-10-30] MEDS: TAMSULOSIN 0.4 MG CAPSULE PO SCH ×2 (10:40→21:52)
[2021-10-30] MEDS: amLODIPine 5 MG TABLET PO SCH (10:40)
[2021-10-30] MEDS: AMIODARONE 200 MG TABLET PO SCH (10:41)
[2021-10-30] MEDS ORDERED: TUBERCULIN SKIN TEST 0.1 ML SYRINGE INTRADERM ONE (13:00)
[2021-10-30] MEDS: ENOXAPARIN 40 MG/0.4 ML SYRINGE SUBCUT SCH (15:46)
[2021-10-31] MEDS: PIPERACILLIN/TAZOBACTAM 3,375 MG in SODIUM CHLORIDE 0.9% 100 ML IV SCH ×3 (02:28→18:14)
[2021-10-31 05:39] LABS: Bilirubin,Total 0.8 MG/DL (0.20-1.00); Calcium 8.7 MG/DL (8.5-10.1); Osmolality,Calculated 291.1 MOS/KG (273-304); Potassium 4.1 MMOL/L (3.5-5.1); Total Protein 6.2 G/DL (6.4-8.2)
[2021-10-31] MEDS: LEVOTHYROXINE 50 MCG TABLET PO SCH (06:15)
[2021-10-31] MEDS: INSULIN REGULAR 100 UNIT/ML SUBCUT SCH ×4 (10:12→21:49)
[2021-10-31] MEDS: TAMSULOSIN 0.4 MG CAPSULE PO SCH ×2 (10:33→21:47)
[2021-10-31] MEDS: CHOLECALCIFEROL 1,000 UNIT TABLET PO SCH (10:33)
[2021-10-31] MEDS: LINACLOTIDE 145 MCG CAPSULE PO SCH (10:33)
[2021-10-31] MEDS: AMIODARONE 200 MG TABLET PO SCH (10:33)
[2021-10-31] MEDS: amLODIPine 5 MG TABLET PO SCH (10:34)
[2021-10-31] MEDS: FEXOFENADINE 180 MG TABLET PO SCH (10:34)
[2021-10-31] MEDS: GABAPENTIN 100 MG CAPSULE PO SCH ×2 (10:34→21:47)
[2021-10-31] MEDS: ASPIRIN EC 81 MG TABLET PO SCH (10:34)
[2021-10-31] MEDS: PANTOPRAZOLE 40 MG TABLET PO SCH (10:35)
[2021-10-31] MEDS: MAGNESIUM OXIDE 400 MG TABLET PO SCH ×2 (10:35→21:47)
[2021-10-31] MEDS: DOCUSATE SODIUM 100 MG CAPSULE PO SCH ×2 (10:35→21:48)
[2021-10-31] MEDS: CYANOCOBALAMIN 500 MCG TABLET PO SCH (10:42)
[2021-10-31] MEDS ORDERED: AMIODARONE INJ 150 MG in DEXTROSE 5% 100 ML IV ONE (10:53)
[2021-10-31] MEDS: INSULIN GLARGINE 100 UNIT/ML SUBCUT SCH ×2 (11:29→21:48)
[2021-10-31] MEDS: ACETAMINOPHEN 325 MG TABLET PO PRN ×2 (16:08→21:47)
[2021-10-31] MEDS: ENOXAPARIN 40 MG/0.4 ML SYRINGE SUBCUT SCH (18:05)
[2021-10-31] MEDS: VERAPAMIL SR 120 MG TABLET PO SCH (18:05)
[2021-10-31 22:15] VITALS: BP 150/70
[2021-11-01] MEDS: PIPERACILLIN/TAZOBACTAM 3,375 MG in SODIUM CHLORIDE 0.9% 100 ML IV SCH ×2 (01:32→10:34)
[2021-11-01 05:08] LABS: Bilirubin,Total 0.7 MG/DL (0.20-1.00); Calcium 8.2 MG/DL (8.5-10.1); Osmolality,Calculated 291.3 MOS/KG (273-304); Potassium 3.7 MMOL/L (3.5-5.1); Total Protein 5.9 G/DL (6.4-8.2)
[2021-11-01] MEDS: LEVOTHYROXINE 50 MCG TABLET PO SCH (06:01)
[2021-11-01] MEDS: AMIODARONE 200 MG TABLET PO SCH (09:58)
[2021-11-01] MEDS: MAGNESIUM OXIDE 400 MG TABLET PO SCH (09:58)
[2021-11-01] MEDS: PANTOPRAZOLE 40 MG TABLET PO SCH (09:58)
[2021-11-01] MEDS: TAMSULOSIN 0.4 MG CAPSULE PO SCH (09:59)
[2021-11-01] MEDS: VERAPAMIL SR 120 MG TABLET PO SCH (09:59)
[2021-11-01] MEDS: ASPIRIN EC 81 MG TABLET PO SCH (09:59)
[2021-11-01] MEDS: CYANOCOBALAMIN 500 MCG TABLET PO SCH (09:59)
[2021-11-01] MEDS: GABAPENTIN 100 MG CAPSULE PO SCH (09:59)
[2021-11-01] MEDS: DOCUSATE SODIUM 100 MG CAPSULE PO SCH (09:59)
[2021-11-01] MEDS: CHOLECALCIFEROL 1,000 UNIT TABLET PO SCH (09:59)
[2021-11-01] MEDS: FEXOFENADINE 180 MG TABLET PO SCH (09:59)
[2021-11-01] MEDS: INSULIN REGULAR 100 UNIT/ML SUBCUT SCH (10:00)
[2021-11-01] MEDS: INSULIN GLARGINE 100 UNIT/ML SUBCUT SCH (10:00)
[2021-11-01] MEDS: LINACLOTIDE 145 MCG CAPSULE PO SCH (10:34)
== END 2021-11-01 11:53 | DRG 522 ==
LOC: EDUNIT# → EDBD → N.ED 22:54 → SUATTDRO 10-27 00:34 → N.EDINP 10-27 00:34 → N.3E 10-27 02:21 → N.TELEN 10-29 14:48
PROVIDERS: ADMIT Internal Medicine; ATTEND Internal Medicine Geriatric Medicine

== ENCOUNTER 2022-03-14 10:19 | Inpatient (IN) ==
[2022-03-14] MEDS ORDERED: ONDANSETRON 4 MG/2 ML VIAL IV PRN (11:45)
[2022-03-14] MEDS: MORPHINE 2 MG/1 ML SYRINGE IV PRN (14:35)
[2022-03-14 15:38] LABS: Basophils % 0.4 % (0.0-0.8); Eosinophils # 0.3 10*3/uL (0.0-0.87); Eosinophils % 3.7 % (0.00-10.9); Hematocrit 40.6 VOL% (42.0-52.0); Hemoglobin 12.5 GM/DL (14.0-18.0); Immature Granulocytes % 0.8 %; Immature Granulocytes Absolute 0.06 #; Lymphocytes # 1.1 10*3/uL (1.4-4.0); Mean Corpuscular HGB Conc 30.8 GM/DL (32-36); Mean Corpuscular Volume 84.2 FL (87-102); Mean Platelet Volume 8.9 FL (9.6-12.0); Monocytes # 0.6 10*3/uL (0.11-0.8); Monocytes % 7.5 % (1.7-12.7); Neutrophils % 72.6 % (38.7-73.9); Platelet Count 284 T/CUMM (130-400); Red Blood Count 4.82 MC/CUMM (3.8-5.5); Red Cell Distribution Width 15.7 % (9.3-17.3); White Blood Count 7.5 T/CUMM (4-12)
[2022-03-14 16:00] LABS: Albumin 2.7 G/DL (3.4-5.0); Bilirubin,Total 0.5 MG/DL (0.20-1.00); Calcium 8.7 MG/DL (8.5-10.1); Osmolality,Calculated 286.4 MOS/KG (273-304); Potassium 4.9 MMOL/L (3.5-5.1); Total Protein 6.4 G/DL (6.4-8.2)
[2022-03-14] MEDS: FONDAPARINUX 2.5 MG/0.5 ML SYRINGE SUBCUT SCH (20:18)
[2022-03-15] MEDS: diphenhydrAMINE CAP 25 MG CAPSULE PO PRN ×4 (02:15→22:00)
[2022-03-15] MEDS: MORPHINE 2 MG/1 ML SYRINGE IV PRN ×4 (04:50→18:41)
[2022-03-15 05:00] LABS: PT Patient Result 10.8 SECS (10.1-12.1)
[2022-03-15 05:10] LABS: Albumin 2.5 G/DL (3.4-5.0); Bilirubin,Total 0.5 MG/DL (0.20-1.00); Calcium 8.4 MG/DL (8.5-10.1); Potassium 4.7 MMOL/L (3.5-5.1); Total Protein 6.5 G/DL (6.4-8.2)
[2022-03-15 05:21] LABS: Basophils % 0.4 % (0.0-0.8); Eosinophils # 0.4 10*3/uL (0.0-0.87); Eosinophils % 4.4 % (0.00-10.9); Hematocrit 41.3 VOL% (42.0-52.0); Immature Granulocytes % 0.7 %; Immature Granulocytes Absolute 0.06 #; Lymphocytes # 1.1 10*3/uL (1.4-4.0); Lymphocytes % 12.8 % (21.2-54.2); Mean Corpuscular HGB Conc 30.3 GM/DL (32-36); Mean Corpuscular Volume 84.8 FL (87-102); Mean Platelet Volume 9.3 FL (9.6-12.0); Monocytes # 0.8 10*3/uL (0.11-0.8); Neutrophils % 72.7 % (38.7-73.9); Platelet Count 271 T/CUMM (130-400); Red Blood Count 4.87 MC/CUMM (3.8-5.5); Red Cell Distribution Width 15.9 % (9.3-17.3); White Blood Count 8.4 T/CUMM (4-12)
[2022-03-15 05:25] LABS: Hemoglobin 12.5 GM/DL (14.0-18.0)
[2022-03-15] MEDS: PANTOPRAZOLE 40 MG TABLET PO SCH (08:01)
[2022-03-15] MEDS: VERAPAMIL SR 120 MG TABLET PO SCH (11:06)
[2022-03-15] MEDS: TRIAMCINOLONE 0.1% OINT 15 GM TUBE TOP SCH ×2 (14:21→22:55)
[2022-03-15] MEDS: FEXOFENADINE 180 MG TABLET PO SCH (14:22)
[2022-03-15] MEDS: TAMSULOSIN 0.4 MG CAPSULE PO SCH (20:24)
[2022-03-15] MEDS: FONDAPARINUX 2.5 MG/0.5 ML SYRINGE SUBCUT SCH (21:06)
[2022-03-16] MEDS: MORPHINE 2 MG/1 ML SYRINGE IV PRN ×2 (01:00→06:23)
[2022-03-16 05:31] LABS: Calcium 8.7 MG/DL (8.5-10.1); Osmolality,Calculated 291.3 MOS/KG (273-304); Potassium 4.3 MMOL/L (3.5-5.1)
[2022-03-16 05:39] LABS: Basophils % 0.2 % (0.0-0.8); Eosinophils # 0.3 10*3/uL (0.0-0.87); Eosinophils % 3.7 % (0.00-10.9); Immature Granulocytes % 0.8 %; Immature Granulocytes Absolute 0.07 #; Lymphocytes # 1.3 10*3/uL (1.4-4.0); Lymphocytes % 14.1 % (21.2-54.2); Mean Corpuscular HGB Conc 30.1 GM/DL (32-36); Mean Corpuscular Volume 85.5 FL (87-102); Mean Platelet Volume 9.4 FL (9.6-12.0); Monocytes # 0.8 10*3/uL (0.11-0.8); Monocytes % 9.1 % (1.7-12.7); Neutrophils % 72.1 % (38.7-73.9); Platelet Count 261 T/CUMM (130-400); Red Blood Count 5.05 MC/CUMM (3.8-5.5); Red Cell Distribution Width 15.8 % (9.3-17.3); White Blood Count 8.9 T/CUMM (4-12)
[2022-03-16 05:40] LABS: Hematocrit 43.2 VOL% (42.0-52.0)
[2022-03-16] MEDS: LEVOTHYROXINE 50 MCG TABLET PO SCH (06:22)
[2022-03-16] MEDS: CYANOCOBALAMIN 500 MCG TABLET PO SCH (08:26)
[2022-03-16] MEDS: VERAPAMIL SR 120 MG TABLET PO SCH (08:26)
[2022-03-16] MEDS: ASPIRIN EC 81 MG TABLET PO SCH (08:26)
[2022-03-16] MEDS: TAMSULOSIN 0.4 MG CAPSULE PO SCH ×2 (08:26→20:44)
[2022-03-16] MEDS: CHOLECALCIFEROL 1,000 UNIT TABLET PO SCH (08:26)
[2022-03-16] MEDS: FUROSEMIDE 40 MG TABLET PO SCH (08:26)
[2022-03-16] MEDS: PANTOPRAZOLE 40 MG TABLET PO SCH (08:26)
[2022-03-16] MEDS: FEXOFENADINE 180 MG TABLET PO SCH (08:26)
[2022-03-16] MEDS: TRIAMCINOLONE 0.1% OINT 15 GM TUBE TOP SCH ×2 (08:27→20:47)
[2022-03-16] MEDS: cycloSPORINE (MODIFIED) 100 MG CAPSULE PO SCH (08:27)
[2022-03-16] MEDS ORDERED: BISACODYL 5 MG TABLET PO ONE (09:00)
[2022-03-16] MEDS: DOCUSATE SODIUM 100 MG CAPSULE PO SCH ×2 (10:23→20:44)
[2022-03-16] MEDS ORDERED: BISACODYL 10 MG SUPP RECTAL ONE (11:00)
[2022-03-16] MEDS: FONDAPARINUX 2.5 MG/0.5 ML SYRINGE SUBCUT SCH (20:46)
[2022-03-16] MEDS: INSULIN LISPRO 100 UNIT/ML SUBCUT SCH (22:00)
[2022-03-17] MEDS: LEVOTHYROXINE 50 MCG TABLET PO SCH (06:20)
[2022-03-17] MEDS ORDERED: BISACODYL 5 MG TABLET PO ONE (08:08)
[2022-03-17] MEDS ORDERED: BISACODYL 10 MG SUPP RECTAL ONE (08:08)
[2022-03-17] MEDS: FEXOFENADINE 180 MG TABLET PO SCH (08:16)
[2022-03-17] MEDS: CYANOCOBALAMIN 500 MCG TABLET PO SCH (08:16)
[2022-03-17] MEDS: CHOLECALCIFEROL 1,000 UNIT TABLET PO SCH (08:16)
[2022-03-17] MEDS: FUROSEMIDE 40 MG TABLET PO SCH (08:16)
[2022-03-17] MEDS: TAMSULOSIN 0.4 MG CAPSULE PO SCH (08:17)
[2022-03-17] MEDS: ASPIRIN EC 81 MG TABLET PO SCH (08:17)
[2022-03-17] MEDS: INSULIN LISPRO 100 UNIT/ML SUBCUT SCH ×2 (08:17→11:56)
[2022-03-17] MEDS: PANTOPRAZOLE 40 MG TABLET PO SCH (08:17)
[2022-03-17] MEDS: VERAPAMIL SR 120 MG TABLET PO SCH (08:23)
[2022-03-17] MEDS: TRIAMCINOLONE 0.1% OINT 15 GM TUBE TOP SCH (08:24)
[2022-03-17] MEDS: DOCUSATE SODIUM 100 MG CAPSULE PO SCH (08:24)
[2022-03-17] MEDS: cycloSPORINE (MODIFIED) 100 MG CAPSULE PO SCH (08:24)
[2022-03-17] MEDS: MORPHINE 2 MG/1 ML SYRINGE IV PRN (10:22)
[2022-03-17 12:20] VITALS: BP 123/68
== END 2022-03-17 16:03 | disposition home health service (06) | DRG 536 ==
LOC: EDUNIT# → EDBD → N.ED 10:19 → N.EDINP 11:44 → SUATTDRO 11:44 → N.3E 15:00
PROVIDERS: ADMIT Family Medicine; ATTEND Hospitalist